=== PATIENT | male | born 1960 | race Caucasian/White ===

== ENCOUNTER 2017-11-13 07:55 | Observation (INO) ==
[2017-11-13 08:17] LABS: Bilirubin,Urine Moderate (Negative); Blood,Urine Small (Negative); Clarity,Urine Clear (Clear); Color,Urine Orange (Yellow); Glucose,Urine (UA) Normal (Normal); Ketones,Urine >=160 mg/dL (Negative); Leukocyte Esterase,Urine Small (Negative); Nitrite,Urine Positive (Negative); Protein,Urine 30 mg/dL (Neg-Trace); Specific Gravity,Urine 1.028 (1.010-1.025); Urobilinogen,Urine Normal (Normal)
[2017-11-13 08:20] LABS: Bacteria,Urine None Seen per hpf (None-Few); Hyaline Casts,Urine Few per lpf (None-Few); Squamous Epithelial Cell,Urine Moderate per lpf (None-Few)
[2017-11-13 08:40] LABS: RBC,Urine 0-3 per hpf (0-3)
[2017-11-13] MEDS ORDERED: Isovue-370 500 ML INFUS..BTL IV ONE (08:51)
[2017-11-13] MEDS ORDERED: Hyoscyamine 0.5 MG/ML MLS IVP ONE (08:51)
[2017-11-13] MEDS ORDERED: Ondansetron 4 MG/2 ML VIAL IVP ONE (08:51)
[2017-11-13] MEDS ORDERED: 0.9 % Sodium Chloride 1,000 ML IVC ONE (08:51)
[2017-11-13 09:07] LABS: Basophils # 0.1 K/mcL (0.0-0.2); Basophils % 0.7 %; Eosinophils # 0.4 K/mcL (0.0-0.6); Eosinophils % 4.3 %; Hematocrit 51.2 % (37.5-50.1); Hemoglobin 17.9 g/dL (12.9-16.9); Immature Granulocytes % 1.4 % (0-4); Lymphocytes # 1.2 K/mcL (0.6-4.6); Lymphocytes % 12.2 %; Mean Corpuscular Hemoglobin 30.2 pg (28.0-33.3); Mean Corpuscular Volume 86.5 fL (83.0-100.0); Monocytes # 0.6 K/mcL (0.0-1.3); Monocytes % 6.4 %; Neutrophils # 7.1 K/mcL (1.6-8.9); Platelet Count 546 K/mcL (140-400); Red Blood Count 5.92 M/mcL (4.19-5.50); Red Cell Distribution Width 14.6 % (11.5-14.5)
--- NOTE | 2017-11-13 09:18 | Emergency Department Note ---
Disposition Clinical Impression: Diverticulitis of intestine with abscess Disposition: Admitted As Inpatient Condition: Good General Adult HPI - General Chief complaint: ED Abdominal Pain Stated complaint: nausea/abd pain Time Seen by Provider: 11/13/17 08:37 Source: patient, family Limitations: no limitations - History of Present Illness Pain Scale: 5 - Related Data Home Medications Medication Instructions Recorded Confirmed Aspirin [Lo-Dose Aspirin EC] 81 mg PO DAILY 11/13/17 11/13/17 Cholecalciferol (D-3) [Vitamin D] 1,000 unit PO DAILY 11/13/17 11/13/17 Ciprofloxacin HCl [Cipro] 500 mg PO BID 11/13/17 11/13/17 Cyanocobalamin (Vitamin B-12) 1,000 mcg PO DAILY 11/13/17 11/13/17 [Vitamin B-12] Dicyclomine [Bentyl] 10 mg PO QID PRN 11/13/17 11/13/17 Losartan Potassium [Cozaar] 25 mg PO DAILY 11/13/17 11/13/17 Metoprolol Tartrate [Metoprolol 25 mg PO DAILY 11/13/17 11/13/17 Tartrate] Multivitamin [One Daily Essential] 1 tab PO DAILY 11/13/17 11/13/17 metroNIDAZOLE [Metronidazole] 500 mg PO Q8H 11/13/17 11/13/17 Allergies Allergy/AdvReac Type Severity Reaction Status Date / Time No Known Allergies Allergy Verified 11/13/17 11:10 Past Medical History - Past Medical History Medical history: Reports: other Surgical history: Reports: vasectomy, other Psychiatric history: Reports: no psych history - Social History Smoking Status: Never smoker Smokeless Tobacco Status: No Alcohol use: Reports: none Drug use: Reports: none Physical Exam - General Limitations: no limitations General appearance: alert, in no apparent distress Course Vital Signs Temperature 98.1 F 11/13/17 07:59 Pulse Rate 78 11/13/17 07:59 Respiratory Rate 18 11/13/17 07:59 Blood Pressure 129/86 11/13/17 07:59 O2 Sat by Pulse Oximetry 98 11/13/17 07:59 Temperature 98.1 F 11/13/17 08:43 Pulse Rate 68 11/13/17 11:44 Respiratory Rate 19 11/13/17 11:03 Blood Pressure 138/88 11/13/17 11:44 O2 Sat by Pulse Oximetry 98 11/13/17 11:44 Oxygen Delivery Oxygen Delivery Room Air Medical Decision Making - Lab Data Result diagrams: 11/13/17 08:55 11/13/17 08:55 Lab Results 11/13/17 11/13/17 11/13/17 Range/Units 08:06 08:55 08:55 WBC 9.5 (4.3-11.1) K/mcL RBC 5.92 H (4.19-5.50) M/mcL Hgb 17.9 H (12.9-16.9) g/dL Hct 51.2 H (37.5-50.1) % MCV 86.5 (83.0-100.0) fL MCH 30.2 (28.0-33.3) pg MCHC 35.0 (31.6-35.5) g/dL RDW 14.6 H (11.5-14.5) % Plt Count 546 H (140-400) K/mcL MPV 10.0 (9.4-12.4) fL Immature Gran % 1.4 (0-4) % Seg Neutrophils % 75.0 % Lymphocytes % 12.2 % Monocytes % 6.4 % Eosinophils % 4.3 % Basophils % 0.7 % Neutrophils # 7.1 (1.6-8.9) K/mcL Lymphocytes # 1.2 (0.6-4.6) K/mcL Monocytes # 0.6 (0.0-1.3) K/mcL Eosinophils # 0.4 (0.0-0.6) K/mcL Basophils # 0.1 (0.0-0.2) K/mcL Sodium 136 (136-145) mEq/L Potassium 3.6 (3.5-5.1) mEq/L Chloride 100 (98-107) mEq/L Carbon Dioxide 28 (23-29) mEq/L BUN 18 (6-20) mg/dL Creatinine 0.74 (0.70-1.30) mg/dL Est GFR ( Amer) > 60 (> 60) Est GFR (Non-Af Amer) > 60 (> 60) BUN/Creatinine Ratio 24 (6-26) Glucose 91 (70-105) mg/dL Calculated Osmolality 283 (280-300) Lactic Acid (0.5-2.2) mmol/L Calcium 9.2 (8.6-10.3) mg/dL Total Bilirubin 1.1 H (0.3-1.0) mg/dL Direct Bilirubin 0.2 (0.0-0.2) mg/dL Indirect Bilirubin 0.9 (0.0-1.2) mg/dL AST 21 (13-39) Units/L ALT 48 (7-52) Units/L Alkaline Phosphatase 84 (34-104) Units/L Serum Total Protein 7.3 (6.4-8.9) g/dL Albumin 3.8 (3.5-5.7) g/dL Globulin 3.5 (2.4-3.5) g/dL Albumin/Globulin Ratio 1.1 (1.1-2.2) Lipase 19 (11-82) Units/L Urine Color [place] A (Yellow) Urine Clarity Clear (Clear) Urine pH 6.0 (5.0-8.0) pH Units Ur Specific [place] 1.028 H (1.010-1.025) Urine Protein 30 H (Neg-Trace) mg/dL Urine Glucose (UA) Normal (Normal) mg/dL Urine Ketones >=160 H (Negative) mg/dL Urine Blood Small H (Negative) Urine Nitrite Positive A (Negative) Urine Bilirubin Moderate H (Negative) Urine Urobilinogen Normal (Normal) mg/dL Ur Leukocyte Esterase Small H (Negative) Urine Microscopic RBC 0-3 (0-3) per hpf Urine Microscopic WBC 3-5 H (0-3) per hpf Ur Squamous Epith Cells Moderate H (None-Few) per lpf Urine Bacteria None Seen (None-Few) per hpf Hyaline Casts Few (None-Few) per lpf Urine Yeast Test Not Performed Ur Culture Indicated? YES A (NO) 11/13/17 Range/Units 08:55 WBC (4.3-11.1) K/mcL RBC (4.19-5.50) M/mcL Hgb (12.9-16.9) g/dL Hct (37.5-50.1) % MCV (83.0-100.0) fL MCH (28.0-33.3) pg MCHC (31.6-35.5) g/dL RDW (11.5-14.5) % Plt Count (140-400) K/mcL MPV (9.4-12.4) fL Immature Gran % (0-4) % Seg Neutrophils % % Lymphocytes % % Monocytes % % Eosinophils % % Basophils % % Neutrophils # (1.6-8.9) K/mcL Lymphocytes # (0.6-4.6) K/mcL Monocytes # (0.0-1.3) K/mcL Eosinophils # (0.0-0.6) K/mcL Basophils # (0.0-0.2) K/mcL Sodium (136-145) mEq/L Potassium (3.5-5.1) mEq/L Chloride (98-107) mEq/L Carbon Dioxide (23-29) mEq/L BUN (6-20) mg/dL Creatinine (0.70-1.30) mg/dL Est GFR ( Amer) (> 60) Est GFR (Non-Af Amer) (> 60) BUN/Creatinine Ratio (6-26) Glucose (70-105) mg/dL Calculated Osmolality (280-300) Lactic Acid 0.7 (0.5-2.2) mmol/L Calcium (8.6-10.3) mg/dL Total Bilirubin (0.3-1.0) mg/dL Direct Bilirubin (0.0-0.2) mg/dL Indirect Bilirubin (0.0-1.2) mg/dL AST (13-39) Units/L ALT (7-52) Units/L Alkaline Phosphatase (34-104) Units/L Serum Total Protein (6.4-8.9) g/dL Albumin (3.5-5.7) g/dL Globulin (2.4-3.5) g/dL Albumin/Globulin Ratio (1.1-2.2) Lipase (11-82) Units/L Urine Color (Yellow) Urine Clarity (Clear) Urine pH (5.0-8.0) pH Units Ur Specific [place] (1.010-1.025) Urine Protein (Neg-Trace) mg/dL Urine Glucose (UA) (Normal) mg/dL Urine Ketones (Negative) mg/dL Urine Blood (Negative) Urine Nitrite (Negative) Urine Bilirubin (Negative) Urine Urobilinogen (Normal) mg/dL Ur Leukocyte Esterase (Negative) Urine Microscopic RBC (0-3) per hpf Urine Microscopic WBC (0-3) per hpf Ur Squamous Epith Cells (None-Few) per lpf Urine Bacteria (None-Few) per hpf Hyaline Casts (None-Few) per lpf Urine Yeast Ur Culture Indicated? (NO) Attestation Statement - Attestation Attestation: I examined this patient and my medical decision-making was reviewed with the Resident Physician. I agree with the documented findings, disposition and treatment plan as described except to the extent set forth below. Patient to ED wanting of abdominal pain. Left lower quadrant. Onset a few days ago. Patient has a history of diverticulitis. He went to an urgent care was placed on Cipro Flagyl. He states he is not getting better. No vomiting. Decreased bowel movements that he attributes to the less intake. He has some tenderness on examination. His abdomen is soft and nondistended. Plan. Basic labs and CT abdomen pelvis. CT shows acute sigmoid diverticulitis with intramural abscess. Discussed with general surgery who will admit. Antibiotics ordered. Abdomen/Pelvis CT 11/13/17 08:51 IMPRESSION: 1. Non-perforated sigmoid diverticulitis with probable 1.8 cm intramural abscess 2. Splenomegaly of uncertain origin. The liver does not have a cirrhotic appearance. Small peripheral low-attenuation foci in the spleen may indicate the presence of small infarcts. No evidence of splenic rupture D/ / Bryan Vitale MD / Bryan Vitale MD Interpreting Provider: Bryan Vitale MD
[2017-11-13 09:26] LABS: Alanine Aminotransferase 48 Units/L (7-52); Albumin 3.8 g/dL (3.5-5.7); Albumin/Globulin Ratio 1.1 (1.1-2.2); Alkaline Phosphatase 84 Units/L (34-104); Aspartate Amino Transferase 21 Units/L (13-39); BUN/Creatinine Ratio 24 (6-26); Bilirubin,Direct 0.2 mg/dL (0.0-0.2); Bilirubin,Indirect 0.9 mg/dL (0.0-1.2); Bilirubin,Total 1.1 mg/dL (0.3-1.0); Blood Urea Nitrogen 18 mg/dL (6-20); Calcium 9.2 mg/dL (8.6-10.3); Carbon Dioxide 28 mEq/L (23-29); Chloride 100 mEq/L (98-107); Globulin 3.5 g/dL (2.4-3.5); Glucose 91 mg/dL (70-105); Lipase 19 Units/L (11-82); Osmolality,Calculated 283 (280-300); Potassium 3.6 mEq/L (3.5-5.1); Sodium 136 mEq/L (136-145); Total Protein 7.3 g/dL (6.4-8.9); eGFR For Non-African Americans > 60 (> 60)
--- NOTE | 2017-11-13 09:28 | Emergency Department Note ---
Disposition Clinical Impression: Diverticulitis of intestine with abscess Qualifiers: Diverticulitis site: large intestine Diverticulitis bleeding: without bleeding Qualified Code(s): K57.20 - Diverticulitis of large intestine with perforation and abscess without bleeding Disposition: Admitted As Inpatient Condition: Good Time of Disposition: 11:09 Abdominal Pain HPI - General Chief Complaint: ED Abdominal Pain Stated Complaint: nausea/abd pain Time Seen by Provider: 11/13/17 08:37 Source: patient, family Mode of arrival: ambulatory Limitations: no limitations Nursing Notes Reviewed: Yes Vital Signs Reviewed: Yes - History of Present Illness HPI Narrative: 57-year-old male with no past medical history presents to the emergency department with left lower quadrant abdominal pain. He says the pains been going on for approximately one week. He was seen in urgent care 1 week ago given Bentyl, Cipro, Flagyl and has had no benefit from those. His only abdominal surgery his had his appendectomy many years ago as a child. Otherwise patient said no abdominal surgery. He has had diverticulitis in the past as this does feel similar to that does not worsen his previous visits. His pain is 2 out of 10 when he says sitting there by any movement or palpitation to the abdomen causes to be in 8 out of 10 nonradiating pain. He said no changes in bowel movements. No changes in urination. He has had mild chest pain they said mainly occurs whenever his abdomen hurts. It does not radiate. He has no shortness of breath. He has been nauseous but has no vomiting. He does not know any melena or bloody stools. Said stools and a normal consistency and color. Patient otherwise has no complaints Pain Scale: 5 - Related Data Home Medications Medication Instructions Recorded Confirmed Aspirin [Lo-Dose Aspirin EC] 81 mg PO DAILY 11/13/17 11/13/17 Cholecalciferol (D-3) [Vitamin D] 1,000 unit PO DAILY 11/13/17 11/13/17 Ciprofloxacin HCl [Cipro] 500 mg PO BID 11/13/17 11/13/17 Cyanocobalamin (Vitamin B-12) 1,000 mcg PO DAILY 11/13/17 11/13/17 [Vitamin B-12] Dicyclomine [Bentyl] 10 mg PO QID PRN 11/13/17 11/13/17 Losartan Potassium [Cozaar] 25 mg PO DAILY 11/13/17 11/13/17 Metoprolol Tartrate [Metoprolol 25 mg PO DAILY 11/13/17 11/13/17 Tartrate] Multivitamin [One Daily Essential] 1 tab PO DAILY 11/13/17 11/13/17 metroNIDAZOLE [Metronidazole] 500 mg PO Q8H 11/13/17 11/13/17 Allergies Allergy/AdvReac Type Severity Reaction Status Date / Time No Known Allergies Allergy Verified 11/13/17 11:10 All systems ED: reviewed and negative except as stated. Review of Systems: As Per HPI Constitutional: Denies: fever, chills, weakness, weight change Eyes: Denies: eye pain, eye discharge, vision change ENT ED: Denies: ear pain, throat pain, dental pain, hearing loss, epistaxis, congestion, dysphagia Cardiovascular: Denies: chest pain, palpitations, dyspnea on exertion, edema, syncope Respiratory: Denies: cough, dyspnea, wheezes, hemoptysis, stridor Gastrointestinal: Reports: abdominal pain, nausea. Denies: vomiting, diarrhea, constipation, hematemesis, melena, hematochezia Genitourinary: Denies: urgency, dysuria, frequency, hematuria Musculoskeletal: Denies: back pain, neck pain, arthralgia, myalgia Integumentary: Denies: rash, abrasion, lesions Neurological: Denies: headache, weakness, numbness, paresthesias, confusion, abnormal gait, vertigo Psychiatric: Denies: anxiety, depression, suicidal thoughts, homicidal thoughts , auditory hallucinations, visual hallucinations Endocrine: Denies: fatigue Hematological/Lymphatic: Denies: easy bleeding, easy bruising Allergic/Immunologic: Denies: facial swelling, urticaria Abdominal Pain PMH - Past Medical History Medical history: Reports: other Male Surgical History: Reports: orthopedic, other Psychiatric history: Reports: no psych history - Social History Smoking status: Never smoker Alcohol use: Reports: none Drug use: Reports: none Physical Exam - General Limitations: no limitations General appearance: alert, in no apparent distress - Head Head exam: atraumatic, normocephalic, normal inspection - Eye Eye exam: Present: normal appearance, PERRL, EOMI - ENT ENT exam: normal exam, normal oropharynx, mucous membranes moist - Neck Neck exam: Present: normal inspection, full ROM, trachea midline - Chest Chest inspection: Present: normal inspection, symmetric chest wall rise - Respiratory Respiratory exam: Present: normal lung sounds bilaterally - Cardiovascular Cardiovascular exam: Present: regular rate, normal rhythm, normal heart sounds - Abdominal Exam Abdominal exam: Present: soft, tenderness (Left lower quadrant on palpation), normal bowel sounds. Absent: distention, guarding, rebound, rigidity - Extremities Exam Extremities exam: Present: normal inspection, full ROM. Absent: tenderness, pedal edema - Back Exam Back exam: Present: normal inspection, full ROM. Absent: tenderness, CVA tenderness (R), CVA tenderness (L) - Neurological Exam Neurological exam: Present: alert, oriented X3 - Skin Skin exam: Present: warm, dry, intact, normal color Course Course Narrative: We will get CBC, BMP, lactate, lipase as well as urinalysis. We will get CT abdomen and pelvis with contrast. We will get EKG and chest x-ray. We will rehydrate patient with IV fluids give Levsin and Zofran. We will reevaluate patient after treatment and imaging studies are done. - Consultations Consultation #1: Consult with Dr. Donald the general surgeon who agreed to admit the patient to their service. Patient is admitted in stable condition Time: 10:56 Vital Signs Temperature 98.1 F 11/13/17 07:59 Pulse Rate 78 11/13/17 07:59 Respiratory Rate 18 11/13/17 07:59 Blood Pressure 129/86 11/13/17 07:59 O2 Sat by Pulse Oximetry 98 11/13/17 07:59 Temperature 98.1 F 11/13/17 08:43 Pulse Rate 68 11/13/17 11:44 Respiratory Rate 19 11/13/17 11:03 Blood Pressure 138/88 11/13/17 11:44 O2 Sat by Pulse Oximetry 98 11/13/17 11:44 Oxygen Delivery Oxygen Delivery Room Air Abdominal Pain - MDM Narrative Medical decision making narrative: 57-year-old male presented here with abdominal pain. CT of the abdomen and pelvis did show an abscess in the sigmoid colon that was 1.8 cm. Patient did have a thrombocytosis which is normal for him. Elevate hemoglobin which is within his normal limits. There is no leukocytosis. Patient was started on Zosyn. Did contact the general surgeon, Dr. Donald who agreed to admit the patient onto his service. Patient states after having the Zofran and Levsin his abdominal pain did feel better and he was less nauseous. Patient also got 1 L bolus of IV fluids. Patient is admitted to surgery in stable condition. Abdomen/Pelvis CT 11/13/17 08:51 IMPRESSION: 1. Non-perforated sigmoid diverticulitis with probable 1.8 cm intramural abscess 2. Splenomegaly of uncertain origin. The liver does not have a cirrhotic appearance. Small peripheral low-attenuation foci in the spleen may indicate the presence of small infarcts. No evidence of splenic rupture D/ / Bryan Vitale MD / Bryan Vitale MD Interpreting Provider: Bryan Vitale MD - Medical Records Medical records reviewed: Yes I reviewed the patient's medical records. - Lab Data Lab results reviewed: Yes I reviewed the patient's lab results. Result diagrams: 11/13/17 08:55 11/13/17 08:55 Lab Results 11/13/17 11/13/17 11/13/17 Range/Units 08:06 08:55 08:55 WBC 9.5 (4.3-11.1) K/mcL RBC 5.92 H (4.19-5.50) M/mcL Hgb 17.9 H (12.9-16.9) g/dL Hct 51.2 H (37.5-50.1) % MCV 86.5 (83.0-100.0) fL MCH 30.2 (28.0-33.3) pg MCHC 35.0 (31.6-35.5) g/dL RDW 14.6 H (11.5-14.5) % Plt Count 546 H (140-400) K/mcL MPV 10.0 (9.4-12.4) fL Immature Gran % 1.4 (0-4) % Seg Neutrophils % 75.0 % Lymphocytes % 12.2 % Monocytes % 6.4 % Eosinophils % 4.3 % Basophils % 0.7 % Neutrophils # 7.1 (1.6-8.9) K/mcL Lymphocytes # 1.2 (0.6-4.6) K/mcL Monocytes # 0.6 (0.0-1.3) K/mcL Eosinophils # 0.4 (0.0-0.6) K/mcL Basophils # 0.1 (0.0-0.2) K/mcL Sodium 136 (136-145) mEq/L Potassium 3.6 (3.5-5.1) mEq/L Chloride 100 (98-107) mEq/L Carbon Dioxide 28 (23-29) mEq/L BUN 18 (6-20) mg/dL Creatinine 0.74 (0.70-1.30) mg/dL Est GFR ( Amer) > 60 (> 60) Est GFR (Non-Af Amer) > 60 (> 60) BUN/Creatinine Ratio 24 (6-26) Glucose 91 (70-105) mg/dL Calculated Osmolality 283 (280-300) Lactic Acid (0.5-2.2) mmol/L Calcium 9.2 (8.6-10.3) mg/dL Total Bilirubin 1.1 H (0.3-1.0) mg/dL Direct Bilirubin 0.2 (0.0-0.2) mg/dL Indirect Bilirubin 0.9 (0.0-1.2) mg/dL AST 21 (13-39) Units/L ALT 48 (7-52) Units/L Alkaline Phosphatase 84 (34-104) Units/L Serum Total Protein 7.3 (6.4-8.9) g/dL Albumin 3.8 (3.5-5.7) g/dL Globulin 3.5 (2.4-3.5) g/dL Albumin/Globulin Ratio 1.1 (1.1-2.2) Lipase 19 (11-82) Units/L Urine Color [place] A (Yellow) Urine Clarity Clear (Clear) Urine pH 6.0 (5.0-8.0) pH Units Ur Specific [place] 1.028 H (1.010-1.025) Urine Protein 30 H (Neg-Trace) mg/dL Urine Glucose (UA) Normal (Normal) mg/dL Urine Ketones >=160 H (Negative) mg/dL Urine Blood Small H (Negative) Urine Nitrite Positive A (Negative) Urine Bilirubin Moderate H (Negative) Urine Urobilinogen Normal (Normal) mg/dL Ur Leukocyte Esterase Small H (Negative) Urine Microscopic RBC 0-3 (0-3) per hpf Urine Microscopic WBC 3-5 H (0-3) per hpf Ur Squamous Epith Cells Moderate H (None-Few) per lpf Urine Bacteria None Seen (None-Few) per hpf Hyaline Casts Few (None-Few) per lpf Urine Yeast Test Not Performed Ur Culture Indicated? YES A (NO) 11/13/17 Range/Units 08:55 WBC (4.3-11.1) K/mcL RBC (4.19-5.50) M/mcL Hgb (12.9-16.9) g/dL Hct (37.5-50.1) % MCV (83.0-100.0) fL MCH (28.0-33.3) pg MCHC (31.6-35.5) g/dL RDW (11.5-14.5) % Plt Count (140-400) K/mcL MPV (9.4-12.4) fL Immature Gran % (0-4) % Seg Neutrophils % % Lymphocytes % % Monocytes % % Eosinophils % % Basophils % % Neutrophils # (1.6-8.9) K/mcL Lymphocytes # (0.6-4.6) K/mcL Monocytes # (0.0-1.3) K/mcL Eosinophils # (0.0-0.6) K/mcL Basophils # (0.0-0.2) K/mcL Sodium (136-145) mEq/L Potassium (3.5-5.1) mEq/L Chloride (98-107) mEq/L Carbon Dioxide (23-29) mEq/L BUN (6-20) mg/dL Creatinine (0.70-1.30) mg/dL Est GFR ( Amer) (> 60) Est GFR (Non-Af Amer) (> 60) BUN/Creatinine Ratio (6-26) Glucose (70-105) mg/dL Calculated Osmolality (280-300) Lactic Acid 0.7 (0.5-2.2) mmol/L Calcium (8.6-10.3) mg/dL Total Bilirubin (0.3-1.0) mg/dL Direct Bilirubin (0.0-0.2) mg/dL Indirect Bilirubin (0.0-1.2) mg/dL AST (13-39) Units/L ALT (7-52) Units/L Alkaline Phosphatase (34-104) Units/L Serum Total Protein (6.4-8.9) g/dL Albumin (3.5-5.7) g/dL Globulin (2.4-3.5) g/dL Albumin/Globulin Ratio (1.1-2.2) Lipase (11-82) Units/L Urine Color (Yellow) Urine Clarity (Clear) Urine pH (5.0-8.0) pH Units Ur Specific [place] (1.010-1.025) Urine Protein (Neg-Trace) mg/dL Urine Glucose (UA) (Normal) mg/dL Urine Ketones (Negative) mg/dL Urine Blood (Negative) Urine Nitrite (Negative) Urine Bilirubin (Negative) Urine Urobilinogen (Normal) mg/dL Ur Leukocyte Esterase (Negative) Urine Microscopic RBC (0-3) per hpf Urine Microscopic WBC (0-3) per hpf Ur Squamous Epith Cells (None-Few) per lpf Urine Bacteria (None-Few) per hpf Hyaline Casts (None-Few) per lpf Urine Yeast Ur Culture Indicated? (NO) - Radiology Data Radiology results reviewed: Yes I reviewed the patient's radiology results. - EKG Data EKG attestation: Yes I reviewed and interpreted this EKG. EKG results narrative: EKG done at 0901 review myself and the attending shows sinus rhythm at a rate of 61, OH interval 183, QRS 100, QTC 443. No acute ST changes no acute T-wave changes no other signs of ischemia. No signs of WPW/[place]/HOCM. No old EKG to compare this is otherwise normal EKG.
[2017-11-13] MEDS ORDERED: Piperacillin/Tazobactam 3.375 GM in Water for inj. (sterile) 20 ML 20 ML IVPB ONE (10:57)
[2017-11-13] MEDS ORDERED: Naloxone 0.4 MG/ML INJ IVP PRN (13:27)
[2017-11-13] MEDS ORDERED: OXYCODONE Oral CONC 10 MG/0.5 ML ORAL.SYG SL PRN ×2 (13:27)
[2017-11-13] MEDS: 0.9 % Sodium Chloride 1,000 ML IVC SCH ×2 (14:37→23:15)
--- NOTE | 2017-11-13 14:39 | General Surg History&Physical ---
<Corbin Lr R - Last Filed: 11/13/17 14:32> Date of Encounter: 11/13/17 Time of Encounter: 14:32 Assessment and Plan (1) Diverticulitis of intestine with abscess Current Visit: Yes Status: Acute The assessment and plan as outlined above was discussed with the patient and/or family members who expressed understanding and agreement. All questions were answered. Antibiotic- Zosyn IV fluids NPO Pain management PPI therapy IS every 1 hour while awake Ambulate halls TID with assistance AM Labs- CBC, BMP, Lactate Qualifiers: Diverticulitis site: large intestine Diverticulitis bleeding: without bleeding Qualified Code(s): K57.20 - Diverticulitis of large intestine with perforation and abscess without bleeding (2) DVT prophylaxis Current Visit: Yes Status: Acute The assessment and plan as outlined above was discussed with the patient and/or family members who expressed understanding and agreement. All questions were answered. EPCD's on bilateral lower extremities Ambulation TID History of Present Illness HPI: Mr. Britton is a 57 year old male presenting for evaluation of 1 week left lower quadrant abdominal pain. Patient does have multiple history of diverticulitis, has been managed with antibiotics as an outpatient. Patient presented to urgent care one week ago, started cipro and flagyl. States he did not note improvement , continued to have fever, chills, and nausea. Pain feels similar to previous episodes of diverticulitis, is more intense and prolonged. Pain 3/10 at baseline , is worsened with movement. Denies vomiting, diarrhea, hematochezia or change in bowel movements. Endorses Fever, chill, pain, nausea. No urinary symptoms. Past Med Surg Social Fam HX - Past Medical History Medical history: other Additional medical history: diverticulitis, thrombocytosis Psychiatric history: no psych history - Past Surgical History Surgical History: appendectomy, vasectomy, other Additional surgical history: left knee,right shoulder,right wrist - Social History Smoking Status: Never smoker Smokeless Tobacco Status: No Alcohol use: none Drug use: none Medications and Allergies Aspirin [Lo-Dose Aspirin EC] 81 mg PO DAILY 11/13/17 [History] Cholecalciferol (D-3) [Vitamin D] 1,000 unit PO DAILY 11/13/17 [History] Ciprofloxacin HCl [Cipro] 500 mg PO BID 11/13/17 [History] Cyanocobalamin (Vitamin B-12) [Vitamin B-12] 1,000 mcg PO DAILY 11/13/17 [ History] Dicyclomine [Bentyl] 10 mg PO QID PRN 11/13/17 [History] Losartan Potassium [Cozaar] 25 mg PO DAILY 11/13/17 [History] Metoprolol Tartrate [Metoprolol Tartrate] 25 mg PO DAILY 11/13/17 [History] Multivitamin [One Daily Essential] 1 tab PO DAILY 11/13/17 [History] metroNIDAZOLE [Metronidazole] 500 mg PO Q8H 11/13/17 [History] 3 Allergy/AdvReac Type Severity Reaction Status Date / Time No Known Allergies Allergy Verified 11/13/17 11:10 Review of Systems All systems PM: The remainder of the systems were reviewed and are negative - Constitutional chills, fever(s), lethargy, night sweats - Gastrointestinal abdominal pain, nausea General Surgery Exam Initial Vital Signs Temp Pulse Resp BP Pulse Ox 98.1 F 78 18 129/86 98 11/13/17 07:59 11/13/17 07:59 11/13/17 07:59 11/13/17 07:59 11/13/17 07:59 - General physical appearance well developed, no distress - Eyes PERRL, normal ocular movement - ENT dry mucosa, atraumatic, normocephalic - Neck trachea midline, no lymphadectomy - Respiratory normal respiratory effort, clear to auscultation - Cardiovascular Cardiovascular exam: Present: RRR - Abdomen Abdomen general surgery: Present: bowel sounds present, soft, surgical scars ( well healed open appendectomy scar) Abdominal Tenderness: Present: LLQ - Integumentary Integumentary general surgery: Present: warm and dry - Neurologic Present: CN 2-12 grossly intact - Psychiatric Psychiatric general surgery: Present: A&Ox3, appropriate, oriented to person, oriented to place, oriented to time Results - Labs 11/13/17 08:55 11/13/17 08:55 Abnormal lab results RBC 5.92 M/mcL (4.19-5.50) H 11/13/17 08:55 Hgb 17.9 g/dL (12.9-16.9) H 11/13/17 08:55 Hct 51.2 % (37.5-50.1) H 11/13/17 08:55 RDW 14.6 % (11.5-14.5) H 11/13/17 08:55 Plt Count 546 K/mcL (140-400) H 11/13/17 08:55 Total Bilirubin 1.1 mg/dL (0.3-1.0) H 11/13/17 08:55 Urine Color [place] (Yellow) A 11/13/17 08:06 Ur Specific [place] 1.028 (1.010-1.025) H 11/13/17 08:06 Urine Protein 30 mg/dL (Neg-Trace) H 11/13/17 08:06 Urine Ketones >=160 mg/dL (Negative) H 11/13/17 08:06 Urine Blood Small (Negative) H 11/13/17 08:06 Urine Nitrite Positive (Negative) A 11/13/17 08:06 Urine Bilirubin Moderate (Negative) H 11/13/17 08:06 Ur Leukocyte Esterase Small (Negative) H 11/13/17 08:06 Urine Microscopic WBC 3-5 per hpf (0-3) H 11/13/17 08:06 Ur Squamous Epith Cells Moderate per lpf (None-Few) H 11/13/17 08:06 Ur Culture Indicated? YES (NO) A 11/13/17 08:06 All other labs normal. <Christopher Donald T - Last Filed: 11/13/17 18:12> Date of Encounter: 11/13/17 History of Present Illness HPI: Mr. Britton is a 57 year old male Review of Systems All systems PM: The remainder of the systems were reviewed and are negative General Surgery Exam Initial Vital Signs Temp Pulse Resp BP Pulse Ox 98.1 F 78 18 129/86 98 11/13/17 07:59 11/13/17 07:59 11/13/17 07:59 11/13/17 07:59 11/13/17 07:59 Results - Labs 11/13/17 08:55 11/13/17 08:55 Abnormal lab results RBC 5.92 M/mcL (4.19-5.50) H 11/13/17 08:55 Hgb 17.9 g/dL (12.9-16.9) H 11/13/17 08:55 Hct 51.2 % (37.5-50.1) H 08/27/18 08:55 RDW 14.6 % (11.5-14.5) H 11/13/17 08:55 Plt Count 546 K/mcL (140-400) H 11/13/17 08:55 Total Bilirubin 1.1 mg/dL (0.3-1.0) H 11/13/17 08:55 Urine Color [place] (Yellow) A 11/13/17 08:06 Ur Specific [place] 1.028 (1.010-1.025) H 11/13/17 08:06 Urine Protein 30 mg/dL (Neg-Trace) H 11/13/17 08:06 Urine Ketones >=160 mg/dL (Negative) H 11/13/17 08:06 Urine Blood Small (Negative) H 11/13/17 08:06 Urine Nitrite Positive (Negative) A 11/13/17 08:06 Urine Bilirubin Moderate (Negative) H 11/13/17 08:06 Ur Leukocyte Esterase Small (Negative) H 11/13/17 08:06 Urine Microscopic WBC 3-5 per hpf (0-3) H 11/13/17 08:06 Ur Squamous Epith Cells Moderate per lpf (None-Few) H 11/13/17 08:06 Ur Culture Indicated? YES (NO) A 11/13/17 08:06 All other labs normal. - Attending Attestation I examined this patient and my medical decision-making was reviewed with the Resident Physician. I agree with the documented findings, disposition and treatment plan as described except to the extent set forth below. I evaluated the patient in the emergency department. He has involuntary guarding in the left lower quadrant. His white blood cell count is normal. He has a markedly abnormal CAT scan. I personally reviewed the CAT scan. He has acute diverticulitis with an intramural abscess. This is not amenable to interventional radiology drainage. He has been on antibiotics for 7 days. He now presents for admission to the hospital and intravenous antibiotic therapy of recalcitrant acute diverticulitis Christopher Donald MD FACS
[2017-11-13] MEDS: Piperacillin/Tazobactam 3.375 GM in 0.9 % Sodium Chloride Mini Bag 100 ML IVPB SCH ×2 (16:17→23:16)
[2017-11-13] MEDS ORDERED: Melatonin 3 MG TABLET PO PRN (18:57)
[2017-11-14] MEDS: *HR* Promethazine 25 MG/ML VIAL IVP PRN ×2 (04:45→20:23)
[2017-11-14 06:00] LABS: Basophils # 0.1 K/mcL (0.0-0.2); Eosinophils # 0.4 K/mcL (0.0-0.6); Eosinophils % 5.3 %; Hematocrit 43.3 % (37.5-50.1); Immature Granulocytes % 1.8 % (0-4); Lymphocytes # 1.2 K/mcL (0.6-4.6); Lymphocytes % 13.9 %; Mean Corpuscular HGB Conc 34.6 g/dL (31.6-35.5); Mean Corpuscular Volume 86.6 fL (83.0-100.0); Mean Platelet Volume 9.9 fL (9.4-12.4); Monocytes # 0.6 K/mcL (0.0-1.3); Monocytes % 6.7 %; Neutrophils # 5.9 K/mcL (1.6-8.9); Platelet Count 552 K/mcL (140-400); Red Cell Distribution Width 14.1 % (11.5-14.5); Segmented Neutrophils % 71.3 %
[2017-11-14 06:14] LABS: BUN/Creatinine Ratio 18 (6-26); Blood Urea Nitrogen 14 mg/dL (6-20); Calcium 8.1 mg/dL (8.6-10.3); Carbon Dioxide 22 mEq/L (23-29); Chloride 106 mEq/L (98-107); Glucose 78 mg/dL (70-105); Osmolality,Calculated 285 (280-300); Potassium 3.8 mEq/L (3.5-5.1); Sodium 138 mEq/L (136-145); eGFR For Non-African Americans > 60 (> 60)
[2017-11-14] MEDS: 0.9 % Sodium Chloride 1,000 ML IVC SCH ×3 (06:43→23:19)
[2017-11-14] MEDS: Piperacillin/Tazobactam 3.375 GM in 0.9 % Sodium Chloride Mini Bag 100 ML IVPB SCH ×3 (08:10→23:20)
[2017-11-14] MEDS: Pantoprazole 40 MG VIAL IVP SCH (08:11)
--- NOTE | 2017-11-14 08:15 | General Surgery Progress Note ---
<Santosh Kuhn - Last Filed: 11/14/17 09:31> Date of Encounter: 11/14/17 Time of Encounter: 08:00 - Assessment and Plan (1) Diverticulitis of intestine with abscess Status: Resolved The patient was evaluated this morning and found to be in no acute distress without abdominal pain or guarding. He is much improved from yesterday with stable vitals of WBC= 8.3, BP 147/85, Temperature at 98.3F. He will be started on clear liquids only without carbonation. He will be monitored for the remainder of today for any changes in temperature and continued on IV antibiotics. Patient will remain in hospital for 24-48 hours pending clinical course. Following discharge there will be a transition to oral antibiotics with patient monitoring by Dr. Donald; the patient is amenable to the plan. Home medications for blood pressure, ASA, and other supplements will be continued as indicated. A followup colonoscopy is planned and will be scheduled in at least six to eight weeks. Qualifiers: Diverticulitis site: large intestine Diverticulitis bleeding: without bleeding Qualified Code(s): K57.20 - Diverticulitis of large intestine with perforation and abscess without bleeding Subjective Patient reports: feels better Narrative: The patient is a 57 year-old male admitted on 11/13 for observation and management of acute diverticulitis with an intramural abscess; he has a history of chronic diverticulitis and diverticulosis. A regimen of IV antibiotics ( piperacillin/tazobactam) and a PPI has been administered and he has been NPO since then. He has tolerated treatment well and admits marked improvement in symptoms as the abdominal pain has resolved. Denies fever, nausea, vomiting, changes in bowel movements, or other urinary symptoms. Objective Vital Signs - Last 8 Hours Temp Pulse Resp BP Pulse Ox 11/14/17 06:11 98.3 F 65 15 147/85 94 11/14/17 04:58 97.9 F 68 16 148/89 94 11/14/17 00:27 98.2 F 72 15 144/82 93 Intake and Output 11/13/17 11/14/17 11/14/17 23:59 07:59 15:59 Intake Total 1100 / 1100 1100 / 1100 Output Total 0 / 0 Balance 1100 / 1100 1100 / 1100 Intake: IV Fluids 1100 / 1100 1100 / 1100 0.9 % Sodium Chloride 1,000 ML 1000 / 1000 1000 / 1000 @ 125 mls/hr IVC .Q8H [facility] Rx#: [id number] Zosyn 3.375 GM In 0.9 % Sodium 100 / 100 100 / 100 Chloride (Mini-Bag +) 100 ML @ 25 mls/hr IVPB Q8HR [facility] Rx#: [id number] Oral 0 / 0 Output: Urine 0 / 0 Other: Meal NPO # Voids 1 # Bowel Movements 0 Blood Glucose* 86 80 - General physical appearance well nourished, no distress, no pain - Respiratory normal expansion - Cardiovascular Cardiovascular exam: Present: NR - Abdomen Abdomen: Present: soft, non tender. Absent: guarding, rebound - Labs 11/14/17 05:39 11/14/17 05:39 Diabetes panel 11/14/17 Range/Units 05:39 Sodium 138 (136-145) mEq/L Potassium 3.8 (3.5-5.1) mEq/L Chloride 106 (98-107) mEq/L Carbon Dioxide 22 L (23-29) mEq/L BUN 14 (6-20) mg/dL Creatinine 0.76 (0.70-1.30) mg/dL Glucose 78 (70-105) mg/dL Calcium 8.1 L (8.6-10.3) mg/dL Calcium panel 11/14/17 Range/Units 05:39 Calcium 8.1 L (8.6-10.3) mg/dL Pituitary panel 11/14/17 Range/Units 05:39 Sodium 138 (136-145) mEq/L Potassium 3.8 (3.5-5.1) mEq/L Chloride 106 (98-107) mEq/L Carbon Dioxide 22 L (23-29) mEq/L BUN 14 (6-20) mg/dL Creatinine 0.76 (0.70-1.30) mg/dL Glucose 78 (70-105) mg/dL Calcium 8.1 L (8.6-10.3) mg/dL Adrenal panel 11/14/17 Range/Units 05:39 Sodium 138 (136-145) mEq/L Potassium 3.8 (3.5-5.1) mEq/L Chloride 106 (98-107) mEq/L Carbon Dioxide 22 L (23-29) mEq/L BUN 14 (6-20) mg/dL Creatinine 0.76 (0.70-1.30) mg/dL Glucose 78 (70-105) mg/dL Calcium 8.1 L (8.6-10.3) mg/dL Consult Discharge Plan - Plan Instructions: Diverticulitis (DC) Referrals: Christopher Donald MD [Partnered Physician] - 11/21/17 1:40 pm Prescriptions: Ciprofloxacin [Cipro] 500 mg PO BID 10 Days #20 tablet metroNIDAZOLE [Metronidazole] 500 mg PO Q8H 10 Days #30 tablet <Christopher Donald - Last Filed: 11/16/17 08:24> Date of Encounter: 11/14/17 Objective - Labs 11/14/17 05:39 11/14/17 05:39 - Attending Attestation I examined this patient and my medical decision-making was reviewed with the Resident Physician. I agree with the documented findings, disposition and treatment plan as described except to the extent set forth below. The patient is seen and evaluated on morning rounds with resident clinical nurse practitioner. He is to make improvement on intravenous antibiotic therapy. If he remains afebrile we should be able to transition to oral antibiotics tomorrow for discharge. Convalescent colonoscopy will be required as well as high soluble fiber diet Christopher Donald MD FACS
[2017-11-15] MEDS: 0.9 % Sodium Chloride 1,000 ML IVC SCH (05:44)
[2017-11-15 07:54] VITALS: BP 173/91
--- NOTE | 2017-11-15 08:04 | Electrocardiograph Report ---
[place] [address] Test Date: 2017-11-13 Pat Name: Ketan Britton Department: EXAM6 Room: 3A22 Gender: M School Clerk: : 1960 Requested By: Suresh Finn Order Number: [id number] Reading MD: Alayna Talamantes Measurements Intervals [place] Rate: 61 P: 43 [place]: 183 QRS: -16 QRSD: 100 T: -13 QT: 439 QTc: 443 Interpretive Statements Sinus rhythm Borderline left axis deviation Nonspecific T abnormalities, inferior leads Electronically Signed On 11-15-2017 8:02:45 EDT by Alayna Talamantes
[2017-11-15] MEDS: Piperacillin/Tazobactam 3.375 GM in 0.9 % Sodium Chloride Mini Bag 100 ML IVPB SCH (08:40)
[2017-11-15] MEDS: Pantoprazole 40 MG VIAL IVP SCH (08:41)
--- NOTE | 2017-11-15 08:49 | Discharge Summary ---
<Corbin Lr R - Last Filed: 11/15/17 11:48> Orders not resulted at time of discharge: Pending orders 11/15/17 07:15 BMP [Basic Metabolic Panel] Routine CBC [Complete Blood Count] [HEME] Routine Date of Encounter: 11/15/17 Time of Encounter: 08:53 - Discharge Diagnosis (1) Diverticulitis of intestine with abscess Priority: Primary Status: Resolved Qualifiers: Diverticulitis site: large intestine Diverticulitis bleeding: without bleeding Qualified Code(s): K57.20 - Diverticulitis of large intestine with perforation and abscess without bleeding General Surgery Exam Initial Vital Signs Temp Pulse Resp BP Pulse Ox 98.1 F 78 18 129/86 98 11/13/17 07:59 11/13/17 07:59 11/13/17 07:59 11/13/17 07:59 11/13/17 07:59 - General physical appearance well developed, no distress, no pain - Eyes PERRL, normal ocular movement - ENT atraumatic, normocephalic - Neck trachea midline - Respiratory normal respiratory effort, clear to auscultation - Cardiovascular Cardiovascular exam: Present: RRR - Abdomen Abdomen general surgery: Present: bowel sounds present, soft, tender (markedly reduced LLQ tenderness) - Integumentary Integumentary general surgery: Present: warm and dry - Neurologic Present: CN 2-12 grossly intact - Psychiatric Psychiatric general surgery: Present: A&Ox3, speech is normal - Hospital Course Hospital course: Mr. Britton is a 57 year old male with a history of diverticulitis. Presented on for evaluation of left lower quadrant abdominal pain, present for 1 week. Stated it was similar to prior episodes of diverticulitis. Patient was initially trialed as outpatient on Amoxicillin for several days and later switched to Cipro and Flagyl for 1 day. Patient reported worsening abdominal pain, fevers, chills, and nausea. Patient presented to ED and was found to have 1.8 cm non-drainable abscess on CT abdomen and pelvis. He was admitted to the surgery service. Placed on bowel rest, npo, iv fluids and IV Zosyn. After one day patient reported improved pain, chills, and nausea. Diet was advanced to include clear liquids. Patient reports no nausea or vomiting with this diet. Pain today is minimal. Patients vitals signs have remained stable, afebrile since admission. Labs within normal limits without leukocytosis. Diet was advanced to regular diet this morning. Patient tolerating well. Reports bowel movement today, no blood visible. No difficulty with ambulation. Patient will be switched to oral antibiotics Cipro and Flagyl with follow up with surgery in 1 week. Colonoscopy to follow in the coming 6-8 weeks. - Time Spent with Patient Total time spent providing and/or coordinating discharge services: - Discharge Medications Prescriptions: Ciprofloxacin [Cipro] 500 mg PO BID 10 Days #20 tablet metroNIDAZOLE [Metronidazole] 500 mg PO Q8H 10 Days #30 tablet Home Medications: Aspirin [Lo-Dose Aspirin EC] 81 mg PO DAILY 11/13/17 [History] Cholecalciferol (D-3) [Vitamin D] 1,000 unit PO DAILY 11/13/17 [History] Cyanocobalamin (Vitamin B-12) [Vitamin B-12] 1,000 mcg PO DAILY 11/13/17 [ History] Dicyclomine [Bentyl] 10 mg PO QID PRN 11/13/17 [History] Losartan Potassium [Cozaar] 25 mg PO DAILY 11/13/17 [History] Metoprolol Tartrate 25 mg PO DAILY 11/13/17 [History] Multivitamin [One Daily Essential] 1 tab PO DAILY 11/13/17 [History] Ciprofloxacin [Cipro] 500 mg PO BID 10 Days #20 tablet 11/15/17 [Rx] metroNIDAZOLE [Metronidazole] 500 mg PO Q8H 10 Days #30 tablet 11/15/17 [Rx] Allergies/Adverse Reactions: 3 Allergy/AdvReac Type Severity Reaction Status Date / Time No Known Allergies Allergy Verified 11/13/17 11:10 Date of admission: 11/13/17 12:04 Primary care physician: Chelsie Da Silva CNP Discharging clinician: Corbin Lr Anticipated date of discharge: 11/15/17 - Patient Status Disposition: Home, Self-Care Condition: Good Functional capacity at discharge: independent ambulation Overall status at discharge: patient is progressing back to baseline - Discharge Instructions Instructions: Diverticulitis (DC) Follow Up With: Christopher Donald MD [Partnered Physician] - 11/21/17 1:40 pm - Diet and Activity Activity: increase activity as tolerated Diet: advance to your usual diet (With the introduction of bulk-forming laxative such as Psyllium or Metamucil) <Christopher Donald - Last Filed: 11/16/17 15:35> Date of Encounter: 11/15/17 General Surgery Exam Initial Vital Signs Temp Pulse Resp BP Pulse Ox 98.1 F 78 18 129/86 98 11/13/17 07:59 11/13/17 07:59 11/13/17 07:59 11/13/17 07:59 11/13/17 07:59 - Hospital Course Hospital course: Mr. Britton is a 57 year old male - Time Spent with Patient Total time spent providing and/or coordinating discharge services: Date of admission: 11/13/17 12:04 Primary care physician: Chelsie Da Silva CNP - Attending Attestation I examined this patient and my medical decision-making was reviewed with the Resident Physician. I agree with the documented findings, disposition and treatment plan as described except to the extent set forth below. The patient is seen and evaluated with the resident and clinical nurse practitioner on morning rounds. He is doing quite well and ready for discharge. He will be followed as an outpatient for follow-up of his clinical response to oral antibiotics for recurrent diverticulitis Christopher Donald MD FACS
== END 2017-11-15 10:26 | disposition home or self-care (01) ==
LOC: EMEROOARM 07:55 → 3ANU 07:55
PROVIDERS: ADMIT Surgery; ATTEND Surgery